=== PATIENT | female | born 1965 | race Caucasian/White ===

== ENCOUNTER → 2016-08-17 | Outpatient (CLI) | payer BC ==
[2016-08-17 16:43] LABS: BASO % 0.6 %; BASO ABS # 0.04 K/uL (0-0.2); COMPLETE YES; EOS % 1.9 %; HEMATOCRIT 42.1 % (37-47); IG% 0.4 %; LYMPH % 25.1 %; LYMPH ABS # 1.68 K/uL (1.2-3.4); MEAN CELL VOLUME 85.2 fL (80-100); MEAN CORPUSCULAR HEMOGLOBIN 27.5 pg (25-34); MEAN CORPUSCULAR HGB CONC 32.3 g/dl (32-36); MEAN PLATELET VOLUME 10.5 fL (7.4-10.4); MONO % 8.2 %; NEUT % 63.8 %; PLATELET COUNT 347 K/uL (130-400); RED BLOOD COUNT 4.94 M/uL (4.2-5.4)
[2016-08-17 16:56] LABS: ALKALINE PHOSPHATASE 83 U/L (45-117); ALT/SGPT 82 U/L (12-78); AST/SGOT 65 U/L (15-37); BLOOD UREA NITROGEN 17 mg/dl (7-18); BUN/CREATININE RATIO 22.3 (10-20); CALCIUM 9.6 mg/dl (8.5-10.1); CARBON DIOXIDE 24 mmol/L (21-32); CHLORIDE 106 mmol/L (98-107); CHOLESTEROL 264 mg/dl (0-200); CHOLESTEROL/HDL RATIO 5.3; CREATININE 0.78 mg/dl (0.60-1.20); GLUCOSE 100 mg/dl (70-99); HDL CHOLESTEROL 50 mg/dl; LDL CHOLESTEROL CALCULATED 176 mg/dl; POTASSIUM 3.9 mmol/L (3.5-5.1); SODIUM 139 mmol/L (136-145); TRIGLYCERIDES 190 mg/dl (0-150); URIC ACID 5.3 mg/dl (2.6-7.2); VERY LOW DENSITY LIPOPROT CALC 38 mg/dl
== END | disposition home or self-care (01) ==
LOC: C.LABBC 15:09
PROVIDERS: ATTEND Family Medicine
DX: I10 Essential (primary) hypertension (principal); M10.9 Gout, unspecified; E78.5 Hyperlipidemia, unspecified; Z79.899 Other long term (current) drug therapy